=== PATIENT | female | born 1985 | race Caucasian/White ===

== ENCOUNTER 2019-01-07 08:47 | Day surgery (SDC) | payer OTHER, SELFPAY ==
[2019-01-01 07:30] VITALS: BMI 46.8
[2019-01-07] VITALS (8 sets, daily range): BP systolic 131–146; BP diastolic 70–92; PULSE 78–91; RESP 14–18; TEMP 36.4–37; O2SAT 97–99; BMI 45.7
[2019-01-07] MEDS: LACTATED RINGERS 1,000 ML 42 ML IV (09:30)
--- NOTE | 2019-01-07 10:12 | PM.PREOP ---
Pre-operative Note Interval Note History & Physical reviewed/Exam performed by Physician: Yes Changes to H&P: No H&P completed within 30 days and has changed as indicated here:: Patient seen and examined today. History and physical examination as documented December 11, 2018 has not changed. Proceed with examination under anesthesia and possible fistulotomy today.
[2019-01-07] MEDS: CEFOTETAN 2 GM/50 ML PIGGYBACK IV (10:35)
--- NOTE | 2019-01-07 11:08 | SUR.OPER ---
Prone on padded OR bed, head in foam head support, gel chest rolls, gel pad under knees, pillow under lower legs, toes free of pressure, arms secured on padded arm boards at <90 degrees abduction. Safety belt at thigh.
[2019-01-07] MEDS: LIDOCAINE 1% W/EPI INJ 20 ML INJ (11:13)
[2019-01-07] MEDS: BUPIVACAINE 0.5% (PF) VIAL 30 ML INJ (11:16)
[2019-01-07] MEDS: DIBUCAINE 1% OINT 28 GM 1 APPLIC TOP (11:26)
--- NOTE | 2019-01-07 11:50 | P.OP_ITS ---
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 Examination under anesthesia 2. Anoscopy 3. Partial fistulotomy with placement of seton Same procedure as scheduled: Yes Indications: 33-year-old female who presented with chronic drainage from the left perianal region. Examination and evaluation were limited in the office. However, signs and symptoms were consistent with fistula in ANO. Examination u nder anesthesia and possible fistulotomy were recommended. Surgeon: Otis Ricketts Click Yes if Unassisted: Yes Anesthesia Type: General Operative Notes Findings: 1. Normal distal rectal canal with healthy noninflamed mucosa 2. No evidence of distal rectal lesions 3. No significant internal or external hemorrhoid disease 4. [place] pile in the anterior midline in conjunction with chronic fistula in ANO draining in the left anterior gluteal skin 5. Small amount of purulent material in chronic abscess cavity 6. Chronic granulation tissue within the distal aspect of the fistula tract 7. 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 After satisfactory induction of anesthesia she was placed in prone mikayla-knife position. All pressure points were padded appropriately. SCOAP time out was performed per standard protocol. Buttocks were taped apart and digital rectal examination revealed no masses or other abnormalities other than the above noted chronic fistula to tract. The rigid lighted anoscope was then used to perform anoscopy and findings are again as above. Rodriguez bivalve anoscope was then inserted after the anal region was prepped and draped in usual sterile fashion. Fistula tract was identified as above. Lacrimal probe was then inserted easily into the tract and the overlying anoderm was opened with the Bovie in a meticulous fashion. It became apparent at this time that the fistula tract was intersphincteric and therefore the anal sphincter muscle fibers could not be divided without risk of incontinence. 0 silk tie was then brought onto the field and placed through the tract with the assistance of the probe and secured. Chronic granulation at the proximal and distal ends of the fistula tract was removed with the curette. Hemostasis was verified and Gel-Foam packing covered in dibucaine ointment was placed in the anal canal for hemostasis. Sterile dressing was applied under a mesh undergarment. Patient was returned to the supine position on the gurney and anesthesia was reversed. She was extubated in the operating room and taken recovery stable condition. Complications: none Condition: stable Disposition: PACU Plan for aftercare: 1. Discharge home 2. Follow up in surgery clinic next week for management of seton
[2019-01-07] MEDS: ONDANSETRON 4 MG/2 ML INJ IV (12:05)
== END 2019-01-07 12:49 | disposition home or self-care (01) ==
PROVIDERS: Visit Provider Surgery
PROC: (CPT 46275; principal; 2019-01-07 10:00)
DX: K60.3 Anal fistula (principal); J45.909 Unspecified asthma, uncomplicated; F33.41 Major depressive disorder, recurrent, in partial remission; E66.01 Morbid (severe) obesity due to excess calories; Z68.42 Body mass index [BMI] 45.0-49.9, adult
CPT/HCPCS: 46275; 46020; J1100; J2405; J2704; J3010

== ENCOUNTER → 2020-07-23 08:38 | Outpatient (CLI) | payer OTHER, SELFPAY ==
[2020-07-23 10:12] LABS: Add Manual Diff / Slide Review NO; Basophils Absolute Auto 0 /uL (0-100); Basophils Percent Auto 0.2 % (0-2); Eosinophils Absolute Auto 100 /uL (0-450); Eosinophils Percent Auto 2.9 % (2-4); Hematocrit 40.2 % (36-46); Hemoglobin 13.8 g/dL (12.0-16.0); Lymphocytes Absolute Auto 1800 /uL (1100-4500); Lymphocytes Percent Auto 34.1 % (25-40); Mean Corpuscular HGB Conc 34.4 % (30-36); Mean Corpuscular Hemoglobin 30.9 PG (26-34); Mean Corpuscular Volume 89.7 fL (80-100); Monocytes Absolute Auto 400 /uL (0-900); Monocytes Percent Auto 6.9 % (3-14); Neutrophils Absolute Auto 2900 /uL (1500-7000); Neutrophils Percent Auto 55.9 % (50-75); Platelet Count 243 X10^3/uL (150-400); Red Blood Cell Count 4.48 X10^6/uL (4.0-5.2); Red Cell Distribution Width 12.6 % (11.6-14.8); White Blood Cell Count 5.2 X10^3/uL (4.5-11.0)
[2020-07-23 10:41] LABS: Rubella Antibody IgG 8.8 IU/mL (>15)
[2020-07-23 10:45] LABS: Thyroid Stimulating Hormone 2.91 uIU/mL (0.47-4.68)
[2020-07-24 07:58] LABS: Thyroid Peroxidase Antibodies <9 IU/mL (0-34)
[2020-07-24 10:30] LABS: Varicella IgG Antibody 571 index (Immune >165)
[2020-07-29 07:18] LABS: Anti Mullerian Hormone 0.951 ng/mL (.)
== END ==
PROVIDERS: PCP Nurse Practitioner Family; Referring Provider Obstetrics & Gynecology Reproductive Endocrinology; Visit Provider Obstetrics & Gynecology Reproductive Endocrinology
DX: Z31.41 Encounter for fertility testing (principal)
CPT/HCPCS: 36415; 82397; 84443; 85025; 86376; 86762; 86787; 86900; 86901

== ENCOUNTER → 2020-07-28 08:06 | Outpatient (CLI) | payer OTHER, SELFPAY ==
--- NOTE | 2020-07-28 | DI.US.S_ITS ---
PROCEDURE: US PELVIC COMPLETE INDICATIONS: INFERTILITY TECHNIQUE: Real-time scanning was performed of the pelvic organs, with image documentation. Additional endovaginal scanning was necessary due to incomplete visualization of the adnexal and endometrial structures by transabdominal scanning. COMPARISON: None. FINDINGS: Transabdominal scanning: Limited scanning through the kidneys shows no hydronephrosis. No pathologic free abdominal or pelvic fluid. Endovaginal scanning: Uterus: Uterus is normal in size at 7.1 x 3.2 x 4.9 cm. The endometrium measures 5 mm in combined thickness. Ovaries: The right ovary measures 3 x 2.2 x 2.6 cm and demonstrates for follicles less than 5 mm and 4 follicles greater than 5 mm. The left ovary measures 2.3 x 2.7 x 1.7 cm and demonstrates 5 follicles less than 5 mm and 1 follicle greater than 5 mm. No adnexal masses can be seen on either side. IMPRESSION: Unremarkable study, with follicle count above. Dictated by: Sahil Mckeon M.D. on 07/28/2020 at 8:15 Approved by: Sahil Mckeon M.D. on 07/28/2020 at 8:16
== END ==
PROVIDERS: PCP Nurse Practitioner Family; Referring Provider Obstetrics & Gynecology Reproductive Endocrinology; Visit Provider Obstetrics & Gynecology Reproductive Endocrinology
DX: N97.8 Female infertility of other origin (principal)
CPT/HCPCS: 76830; 76856

== ENCOUNTER 2021-11-25 12:37 | Emergency (ER) | payer OTHER, SELFPAY ==
[2021-11-25 12:52] VITALS: BP 131/87; PULSE 60; RESP 15; TEMP 36.2; BMI 41.1
--- NOTE | 2021-11-25 13:19 | ED.EYEPROB ---
HPI - Eye Problem <Lary Imer Hammond, [employer] - Last Filed: 11/25/21 13:47> General Chief complaint: Eye Problems Stated complaint: Bubble in Lt Eye Time Seen by Provider: 11/25/21 12:59 Source: patient Mode of arrival: Ambulatory History of Present Illness HPI Narrative: 36-year-old female presents to the emergency department for edema in her left conjunctiva outside of her pupil. She reports that she was rubbing her eye this morning and she noticed that her eye was itchy and when she looked in the mirror she noticed that there was a bubble of fluid over the low left lateral aspect of her conjunctivae. She denies any foreign body she denies a history of this in the past, she reports that it started this morning, she denies any vision changes or eye pain. Related Data Home Medications Medication Instructions Recorded Confirmed albuterol sulfate 90 mcg/actuation 1 puff INH Q4H PRN #0 08/23/17 01/23/19 aerosol inhaler (Proventil HFA) cetirizine 10 mg tablet 10 mg PO QDAYP PRN #0 08/23/17 01/23/19 omeprazole 40 mg capsule,delayed 40 mg PO QDAY #0 08/23/17 01/23/19 release sertraline 100 mg tablet (Zoloft) 100 mg PO QDAY #0 08/23/17 01/23/19 ipratropium 0.5 mg-albuterol 3 mg 3 ml INH Q6HP PRN 01/01/19 01/23/19 (2.5 mg base)/3 mL nebulization soln calcium carbonate 200 mg calcium 400 mg PO Q4-6H PRN 01/07/19 01/23/19 (500 mg) chewable tablet (Tums) fluticasone propionate 220 2 puff INHALATION DAILY 01/07/19 01/23/19 mcg/actuation HFA aerosol inhaler (Flovent HFA) zolmitriptan 5 mg tablet 5 mg PO Q2-4H PRN 01/07/19 01/23/19 Previous Rx's Medication Instructions Recorded docusate sodium 100 mg capsule 100 mg PO BID #14 cap 01/07/19 (Colace) oxycodone 5 mg tablet 5 mg PO Q4-6H PRN #30 tab 01/07/19 sennosides 8.6 mg tablet (Senokot) 8.6 mg PO BEDTIME #10 tab 01/07/19 polymyxin B sulfate 10,000 1 drp EYE-LEFT QID 5 Days #10 ml 11/25/21 unit-trimethoprim 1 mg/mL eye drops Allergies Allergy/AdvReac Type Severity Reaction Status Date / Time No Known Drug Allergies Allergy Verified 11/25/21 12:57 Review of Systems <CARLITOS Luna - Last Filed: 11/25/21 13:47> Review of Systems Narrative: General: denies fever, chills Head/Neck: denies headache, neck pain Eyes: denies visual changes, eye pain, endorses left eye is pruritic Cardio: denies chest pain, palpitations Respiratory: denies shortness of breath, cough : denies dysuria, hematuria MSK: denies joint pain, muscle weakness Skin: denies rash, itching Neuro: denies numbness, tingling Patient History <CARLITOS Luna - Last Filed: 11/25/21 13:47> Medical History Asthma Depression Gastroesophageal reflux disease Morbid obesity with BMI of 45.0-49.9, adult Pneumothorax Seasonal allergies Surgical History History of incision and drainage (01/09/17) History of lung surgery Family History Mother Diabetes mellitus Social History marital status: household members: spouse Smoking Status: Never smoker alcohol intake: never substance use type: does not use Smoking Status: Never smoker alcohol intake frequency: 0-2 drinks per day Substance Use Type: does not use Exam <CARLITOS Luna - Last Filed: 11/25/21 13:47> Narrative Exam Narrative: Independently reviewed vitals signs and nursing notes. General: Awake, alert, nontoxic, no cardiorespiratory distress Head/Neck: Atraumatic, neck full range of motion Eyes: EOMI, left eye with chemosis on lateral aspect. Does not extend over pupil. Nose: nares patent, no rhinorrhea Mouth/Throat: moist mucus membranes, posterior pharynx normal, no oral lesions Respiratory: respirations unlabored without wheezing MSK: Moves all extremities, neurovascularly intact Skin: Normal capillary refill, no rash Neuro: Normal speech and cognition, normal gait Initial Vital Signs Initial Vital Signs: Vital Signs Temperature 97.2 F L 11/25/21 12:52 Pulse Rate 60 11/25/21 12:52 Respiratory Rate 15 11/25/21 12:52 Blood Pressure 131/87 11/25/21 12:52 <Rose Koenig DO - Last Filed: 11/27/21 14:52> Initial Vital Signs Initial Vital Signs: Vital Signs Temperature 97.2 F L 11/25/21 12:52 Pulse Rate 60 11/25/21 12:52 Respiratory Rate 15 11/25/21 12:52 Blood Pressure 131/87 11/25/21 12:52 Course <CARLITOS Luna - Last Filed: 11/25/21 13:47> Vital Signs Vital signs: Vital Signs - 8 hr 11/25/21 12:52 Temperature 97.2 F L Pulse Rate 60 Respiratory Rate 15 Blood Pressure 131/87 <Rose Koenig DO - Last Filed: 11/27/21 14:52> Vital Signs Vital signs: Vital Signs - 8 hr 11/25/21 12:52 Temperature 97.2 F L Pulse Rate 60 Respiratory Rate 15 Blood Pressure 131/87 MDM - Eye Problem <CARLITOS Luna - Last Filed: 11/25/21 13:47> MDM Narrative Medical decision making narrative: This 36-year-old female presents to the emergency department for left conjunctival chemosis which happened today after she was itching her eye. Patient does have any vision changes, she does any pain, it has not ruptured nor is it hemorrhagic. 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 Patient is appropriate and amenable to discharge home. Vital signs are stable on repeat examination is unremarkable. Patient has been informed of results. Patient has been given strict return to ER precautions for any new or worsening symptoms. Patient understands to follow up closely with outpatient providers as instructed. Patient understands plan and agrees to discharge home. All questions and concerns answered at this time. Discharge Plan Departure Patient Disposition: Home Clinical Impression: Chemosis of conjunctiva Qualifiers: Laterality: left Qualified Code(s): H11.422 - Conjunctival edema, left eye Instructions: Conjunctivitis Activity Restrictions/Additional Instructions: *You have been diagnosed with chemosis. This is fluid behind the outer covering of the eyeball. This can be because your itching your eye for because allergies, rarely it can be a sign of a cut on the eye itself. This should go down in the next 1-2 days, if this is due to allergies it may take up to 2 weeks. You can take [id number] Claritin or Zyrtec if you think it might be due to allergies. Please use eyedrops as needed to prevent your eye from getting dry. If this gets any worse, affects your vision, causes eye pain, or if you have a white discharge coming from your eye please return to the emergency department or follow-up with your eye doctor immediately. *What to do: *Please continue to take your regular medications as directed. [ ] New medication prescriptions sent to your pharmacy: [ ] [ ] New medication written as a paper prescription [x] No new medications given *Please follow up with your primary care provider in 2-3 days, call for an appointment. Let them know you were seen in the Emergency Department and that we ask that you be seen in follow up. We will electronically transmit a record of today's note if your PCP is in our system *If you do not have a primary care provider please contact the [facility] Resource line at [phone]. They will ask some questions about your medical history and help get you set up with a doctor in the community. *Return to Emergency Department if you should have any new, worsening or concerning symptoms, such as [fever greater than 101F, chills, worsening pain, persistent vomiting or other bothersome symptoms] Prescriptions: New polymyxin B sulf-trimethoprim 10,000 unit- 1 mg/mL drops 1 drp EYE-LEFT QID 5 Days Qty: 10 0RF No Action sertraline [Zoloft] 100 MG tablet 100 mg PO QDAY Qty: 0 0RF omeprazole 40 MG capsule,delayed release(DR/EC) 40 mg PO QDAY Qty: 0 0RF Proventil HFA 90 MCG/PUFF HFA aerosol inhaler 1 puff INH Q4H PRN (Reason: Wheeze, sob, asthma) Qty: 0 0RF cetirizine 10 MG tablet 10 mg PO QDAYP PRN (Reason: Allergies) Qty: 0 0RF ipratropium-albuterol 3 ML solution for nebulization 3 ml INH Q6HP PRN (Reason: Asthma) 0RF zolmitriptan 5 mg Tablet 5 mg PO Q2-4H PRN (Reason: Migraine Headache) 0RF calcium carbonate [Tums] 200 mg calcium (500 mg) Tablet,Chewable 400 mg PO Q4-6H PRN (Reason: Acid Reflux) 0RF Flovent HFA 220 mcg/actuation Hfa Aerosol Inhaler 2 puff INHALATION DAILY 0RF sennosides [Senokot] 8.6 mg tablet 8.6 mg PO BEDTIME Qty: 10 1RF docusate sodium [Colace] 100 mg capsule 100 mg PO BID Qty: 14 1RF oxycodone 5 mg tablet 5 mg PO Q4-6H PRN (Reason: pain) Qty: 30 0RF Referrals: Jaelyn Harkins ARNP [Primary Care Provider] - <Rose Koenig DO - Last Filed: 11/27/21 14:52> Cosign ED Attending Siddharth Attestation: I was immediately available in the department for consultation. Documentation has been reviewed. I agree with assessment and plan.
== END 2021-11-25 13:21 | disposition home or self-care (01) ==
PROVIDERS: Emergency Provider Nurse Practitioner Critical Care Medicine; PCP Nurse Practitioner Family
DX: H11.422 Conjunctival edema, left eye (principal)
CPT/HCPCS: 99281

== ENCOUNTER → 2022-09-08 08:56 | Outpatient (CLI) | payer OTHER, SELFPAY ==
[2022-09-08 09:54] LABS: Add Manual Diff / Slide Review NO; Basophils Absolute Auto 0 /uL (0-100); Basophils Percent Auto 0.2 % (0-2); Eosinophils Absolute Auto 100 /uL (0-450); Eosinophils Percent Auto 1.9 % (2-4); Hematocrit 39.4 % (36-46); Lymphocytes Absolute Auto 1700 /uL (1100-4500); Lymphocytes Percent Auto 29.1 % (25-40); Mean Corpuscular HGB Conc 35.6 % (30-36); Mean Corpuscular Hemoglobin 31.1 PG (26-34); Mean Corpuscular Volume 87.3 fL (80-100); Monocytes Absolute Auto 400 /uL (0-900); Monocytes Percent Auto 6.9 % (3-14); Neutrophils Absolute Auto 3700 /uL (1500-7000); Neutrophils Percent Auto 61.9 % (50-75); Platelet Count 204 X10^3/uL (150-400); Red Blood Cell Count 4.51 X10^6/uL (4.0-5.2); Red Cell Distribution Width 13.6 % (11.6-14.8); White Blood Cell Count 5.9 X10^3/uL (4.5-11.0)
[2022-09-08 10:10] LABS: HEMOLYSIS < 15 (0-50); Iron 99 ug/dL (37-170)
[2022-09-08 10:12] LABS: Alanine Aminotransferase 10 IU/L (<35); Albumin 3.8 g/dL (3.5-5.0); Albumin Globulin Ratio 1.5 (1.0-2.8); Alkaline Phosphatase 55 U/L (38-126); Aspartate Aminotransferase 15 IU/L (14-36); BUN Creatinine Ratio 16.1 (6-22); Bilirubin Total 0.6 mg/dL (0.2-1.3); Blood Urea Nitrogen 10 mg/dL (7-17); Calcium 8.7 mg/dL (8.4-10.2); Carbon Dioxide 29 mmol/L (22-32); Chloride 104 mmol/L (98-107); Cholesterol 136 mg/dL (140-199); Estimated Glomerular Filt Rate > 60 mL/min (>60); Globulin 2.6 g/dL (1.7-4.1); Glucose 83 mg/dL (70-100); HDL Cholesterol 41 mg/dL (40-60); HEMOLYSIS < 15 (0-50); LDL Cholesterol Calculated 83 mg/dL (<100); Sodium 140 mmol/L (137-145); Total Protein 6.4 g/dL (6.3-8.2); Triglycerides 62 mg/dL (35-150)
[2022-09-08 10:26] LABS: Percent Iron Saturation 43 % (15-50); Total Iron Binding Capacity 229 ug/dL (265-497); Transferrin 159 mg/dL (206-381); Vitamin D 25 Hydroxy (D3) 47.9 ng/mL (30.0-100.0)
[2022-09-08 10:55] LABS: Vitamin B12 514 pg/mL (239-931)
[2022-09-09 11:21] LABS: Parathyroid Hormone Int 38 pg/mL (15-65)
[2022-09-09 14:13] LABS: Ionized Calcium 4.8 mg/dL (4.5-5.6)
[2022-09-10 12:35] LABS: Folate, RBC 831 ng/mL (>498); Hematocrit 42.5 % (34.0-46.6)
[2022-09-14 22:39] LABS: Vitamin B1 129.8 nmol/L (66.5-200.0)
== END ==
PROVIDERS: PCP Nurse Practitioner Family; Referring Provider Physician Assistant; Visit Provider Physician Assistant
DX: E66.9 Obesity, unspecified (principal); Z98.84 Bariatric surgery status
CPT/HCPCS: 36415; 80053; 80061; 82306; 82330; 82607; 82747; 83540; 83550; 83735; 83970; 84425; 85014; 85025